=== PATIENT | male | born 1965 | race Hispanic/Latino ===

== ENCOUNTER 2021-04-04 08:47 | Day surgery (SDC) | payer OTHER ==
[2021-04-01 11:31] LABS: INR 1.09 (0.85-1.15); PROTHROMBIN TIME 11.8 SEC (9.6-11.6)
[2021-04-03 11:10] VITALS: BP 167/93
[2021-04-04] VITALS (16 sets, daily range): BP systolic 130–154; BP diastolic 83–100
[~2021-04-04] VITALS: Ht 172.7 cm; Wt 83.6 kg
[~2021-04-04 08:47] MED LIST: FLUT15.845 NS; MV-M1TAB20 PO; OMEP40CA21 PO
[2021-04-04] MEDS ORDERED: LACTATED RINGERS 1000ML 1,000 ML IV ONE (10:28)
[2021-04-04] MEDS ORDERED: MIDAZOLAM HCL 1 MG/ML 2ML VIAL ONE (12:46)
[2021-04-04] MEDS ORDERED: PROPOFOL 10 MG/ML 20ML VIAL IV ONE ×2 (12:46→12:57)
[2021-04-04] MEDS ORDERED: FENTANYL CITRATE PF 50 MCG/1 ML 5ML AMP IV ONE (12:46)
[2021-04-04] MEDS ORDERED: EPINEPHRINE 1 MG/ML 30ML VIAL IJ ONE (13:00)
[2021-04-04] MEDS ORDERED: MEPERIDINE-PF 25 MG/ML SYG ONE (13:02)
[2021-04-04] MEDS ORDERED: GLYCOPYRROLATE 1 MG/5 ML SYRINGE ONE (13:06)
[2021-04-04] MEDS ORDERED: KETOROLAC 30MG VIAL (30MG/ML) ONE (13:21)
== END 2021-04-04 15:05 | disposition home or self-care (01) ==
LOC: DAH 08:47
PROVIDERS: ATTEND Otolaryngology
DX: R49.0 Dysphonia (principal); D02.0 Carcinoma in situ of larynx; Z20.822 Contact with and (suspected) exposure to COVID-19; Z79.01 Long term (current) use of anticoagulants; Z98.890 Other specified postprocedural states; Z79.899 Other long term (current) drug therapy; Z87.891 Personal history of nicotine dependence
CPT/HCPCS: 31536; 36415; 85610; 87635; 88305; A4215; A4221; A4222; A4223; A4663; A4930; C9803; J0171; J1885; J2175; J2250; J2704 ×2; J3010; J3490; J7120